=== PATIENT | female | born 1950 | race Caucasian/White ===

== ENCOUNTER 2022-11-24 06:21 | Emergency (ER) | payer MEDICARE, OTHER, SELFPAY ==
[2022-11-24] VITALS (8 sets, daily range): BP systolic 152–195; BP diastolic 72–90; PULSE 74–96; RESP 14–18; TEMP 36.9–37.1; O2SAT 96–98; BMI 29.2
--- NOTE | 2022-11-24 06:27 | ED.GENADULT ---
HPI - General Adult General Chief complaint: Recheck/Abnormal Lab/Rx Stated complaint: Blood Clot in neck and need ultrasound Time Seen by Provider: 11/24/22 06:26 History of Present Illness HPI narrative: 72F nonsmoker without significant medical history presents with her in the chief complaint of concern of clot in her neck. She states that she had an ultrasound of her thyroid [place] a week or 2 ago and was just called today and encouraged to present to the emergency department. She states that there was an incidental finding of a questionable clot in her left jugular vein (she was able to show me that radiology read on her phone). Her primary care provider encouraged her to come here for confirmation and possible initiation of treatment. The patient states she has no symptoms such as headache or neck pain, no head, face or neck swelling, redness or tenderness. She has no dizziness, weakness or lightheadedness. She denies blurred vision or trouble with speech. Related Data Allergies Allergy/AdvReac Type Severity Reaction Status Date / Time No Known Drug Allergies Allergy Verified 11/24/22 06:41 Review of Systems Review of Systems Narrative: GENERAL: Denies chills, fatigue, malaise, fever, sweats. HEENT: Denies sinus pain, ear pain, sore throat, difficulty swallowing, dizziness. RESPIRATORY: Denies dyspnea, cough, wheezing, hemoptysis, sputum. CARDIOVASCULAR: Denies chest pain, palpitations, orthopnea, edema, GASTROINTESTINAL: Denies nausea, vomiting, abdominal pain, diarrhea, constipation, melena. : Denies dysuria, frequency, incontinence, hematuria, urinary retention. MUSCULOSKELETAL: denies weakness, joint pain, or bony pain SKIN: Denies rash, skin lesions, or other NEUROLOGIC: Denies weakness, headache, numbness, change in speech, confusion, seizures, incoordination. PSYCHIATRIC: No concerning psychosocial issues. 12 point review of systems is negative except for those stated above Patient History Social History Smoking Status: Former smoker Exam Narrative Exam Narrative: GEN: AOx3 and in mild distress HEAD/NECK: No pain, swelling, erythema EYES: Pupils are equal, round, and reactive to light and accommodation. Extraoccular muscles are intact bilaterally. There is no subconjunctival hemorrhage or exudate. CHEST: Lungs are clear to auscultation bilaterally and free of wheezes, rales, or rhonchi. Heart rate is regular rhythm, there are no murmurs, clicks, rubs, or gallops. There is no chest wall tenderness. ABD: Abdomen is soft and nontender. There is no guarding or rebound. Bowel sounds are normal in all 4 quadrants. There is no mass or organomegaly. EXT: Full painless ROM of all extremities with no loss of sensation or strength. SKIN: Warm, pink, and dry. No erythema or rash Initial Vital Signs Initial Vital Signs: Vital Signs Pulse Rate 96 H 11/24/22 06:29 Pulse Oximetry 97 11/24/22 06:29 Medical Decision Making MDM Narrative Medical decision making narrative: [72] year old patient presents with concern for DVT in left neck Multiple etiologies for patient's symptoms considered including, but not limited to: [DVT versus other] Prior Charts reviewed in our EMR Primary Historian: patient Imaging reviewed: Ultrasound demonstrates no clot Patient's history and physical exam are reassuring and there is no evidence of clot on imaging. Furthermore she has no complaints and no physical exam findings that are abnormal Findings and discharge diagnosis discussed with patient/family followed by verbalization of understanding Return precautions discussed with patient/family whom verbalize understanding of diagnosis and plan Discharge Plan Departure Patient Disposition: Home Clinical Impression: Feared complaint without diagnosis Activity Restrictions/Additional Instructions: *You have been diagnosed with [reassuring ultrasound and no evidence of DVT] *What to do: *Please continue to take your regular medications as directed. *Please follow up with your primary care provider in 2-3 days, call for an appointment. Let them know you were seen in the Emergency Department and that we ask that you be seen in follow up. We will electronically transmit a record of today's note if your PCP is in our system *Return to Emergency Department if you should have any new, worsening or concerning symptoms, such as [fever greater than 101 F, shaking chills, worsening pain, persistent vomiting or other bothersome symptoms] Stand Alone Forms: Patient Portal/API
--- NOTE | 2022-11-24 06:39 | DI.US.S_ITS ---
PROCEDURE: US PERIPH VENOUS UP EXTREM LT INDICATIONS: QUESTION LEFT IJV DVT ON OUTSIDE THYROID US TECHNIQUE: Real-time imaging, as well as color and pulse Doppler interrogation, was performed of the left upper extremity deep veins from the inferior neck to the antecubital fossa. COMPARISON: None. FINDINGS: The internal jugular vein, visualized portions of the subclavian vein, and axillary veins are free of intraluminal thrombus. Where physically possible, these veins are normally compressible. Color and pulse Doppler demonstrate normal intraluminal flow, with expected phasicity and pulsatility. IMPRESSION: No deep vein thrombosis within the veins of the proximal left upper extremity. Dictated by: Vanessa Salomon M.D. on 11/24/2022 at 8:18 Approved by: Vanessa Salomon M.D. on 11/24/2022 at 8:19
--- NOTE | 2022-11-24 07:30 | PC.NURSE ---
Received safe handoff report. Pt resting comfortably, denies pain or any new or concerning symptoms.
== END 2022-11-24 08:40 | disposition home or self-care (01) ==
PROVIDERS: Emergency Provider Emergency Medicine
DX: Z71.1 Person with feared health complaint in whom no diagnosis is made (principal)
CPT/HCPCS: 93971; 99281; 99282